=== PATIENT | female | born 1955 | race Caucasian/White ===

== ENCOUNTER → 2016-02-23 | Outpatient (CLI) | payer OTHER ==
[2016-02-23 13:28] LABS: BLOOD GAS BASE EXCESS -0.2 mmol/L (-2-2); BLOOD GAS CARBOXYHEMOGLOBIN 1.2 % (0-4); BLOOD GAS HCO3 24 mmol/L (22-26); BLOOD GAS METHEMOGLOBIN 1.1 % (0-2); BLOOD GAS O2 HGB SATURATION 93 % (90-100); BLOOD GAS OXYGEN CONTENT 17.8 Vol % (12.0-20.0); BLOOD GAS PCO2 39 mmHg (38-42); BLOOD GAS PO2 76 mmHg (61-120); BLOOD GAS TOTAL HGB 13.6 G/DL (12.0-16.0); CRITICAL VALUE NO; DRAW SITE RT RADIAL; FIO2 221 %; NUMBER OF ARTERIAL PUNCTURES 1; STAT NO; TEMP CORR TO 98.6; ULNAR PULSE PRESENT
--- NOTE | 2016-03-02 09:39 | RSPPFT ---
DATE OF PROCEDURE: 02/23/16 COMMENTS: Spirometry with FVC of 1.9 predicted 3.0, FEV1 of 1.4 predicted 2.2, FEV1/FVC ratio 71% predicted 73%. Air trapping is present with increased RV of 2.9 predicted 1.9. IMPRESSION: On the basis of the above, patient has a mild obstructive lung defect with air trapping. DLCO is within the predicted range.
== END ==
LOC: HRSP 12:09
PROVIDERS: ATTEND Internal Medicine Pulmonary Disease
DX: J47.9 Bronchiectasis, uncomplicated (principal)
CPT/HCPCS: 36600; 82805; 94060; 94620; 94726; 94729